=== PATIENT | female | born 1955 | race Caucasian/White ===

== ENCOUNTER 2018-09-23 08:46 | Emergency (ER) | payer BC ==
[~2018-09-23] VITALS: Ht 165.1 cm; Wt 59.1 kg
[2018-09-23 09:05] VITALS: BP 108/59
[2018-09-23] MEDS ORDERED: CEPH250T PO (11:10)
== END 2018-09-23 11:35 | disposition home or self-care (01) ==
LOC: ER 08:46
DX: S61.212A Laceration without foreign body of right middle finger without damage to nail, initial encounter (principal); Z90.710 Acquired absence of both cervix and uterus; Z98.890 Other specified postprocedural states; W45.8XXA Other foreign body or object entering through skin, initial encounter; Y93.89 Activity, other specified; Y92.89 Other specified places as the place of occurrence of the external cause; Y99.8 Other external cause status
CPT/HCPCS: 12002; 99283